=== PATIENT | female | born 1960 | race Caucasian/White ===

== ENCOUNTER 2018-10-26 21:29 | Emergency (ER) | payer OTHER ==
[2018-10-26 21:43] VITALS: BP 152/81
[2018-10-26] MEDS ORDERED: Albuterol/Ipratropium NEB.SOL* Albuterol 2.5 MG/Ipratropium 0.5 MG 3 ML INH ONE (21:52)
[2018-10-26] MEDS ORDERED: predniSONE TAB* 20 MG PO ONE (21:55)
--- NOTE | 2018-10-26 22:08 | ED ---
Respiratory - HPI Summary HPI Summary: 57 yr old female with the complaint of coughing, runny nose. Onset yesterday. She uses her inhaler. She has a history of asthma. She has no fever or chills. No CP. SHe states she needs a neb and to be started on steroids. Symptoms are moderate. - History of Current Complaint Chief Complaint: UCRespiratory Stated Complaint: ASTHMA Time Seen by Provider: 10/26/18 21:52 Pain Intensity: 0 - Allergy/Home Medications Allergies/Adverse Reactions: Allergies Allergy/AdvReac Type Severity Reaction Status Date / Time Penicillins Allergy Unknown Verified 10/26/18 21:43 Reaction Details Home Medications: Home Medications Albuterol 2.5MG/3ML (0.083%)* [Ventolin 2.5 MG/3 ML NEB.DERIK*] 2.5 mg INH Q4H 08/11 [History Confirmed 10/26/18] Montelukast Sodium TAB* [Singulair TAB*] 10 mg PO DAILY 10/26/18 [History Confirmed 10/26/18] PMH/Surg Hx/FS Hx/Imm Hx Infectious Disease History: No Infectious Disease History: Denies: Traveled Outside the [place] in Last 30 Days - Family History Known Family History: Positive: None - Social History Occupation: Employed Full-time Alcohol Use: Weekly Substance Use Type: Reports: None Smoking Status (MU): Never Smoked Tobacco Review of Systems Constitutional: Negative Positive: Shortness Of Breath, Cough All Other Systems Reviewed And Are Negative: Yes Physical Exam Triage Information Reviewed: Yes Vital Signs On Initial Exam: Initial Vitals Temp Pulse Resp BP Pulse Ox 98.7 F 91 18 152/81 96 10/26/18 21:40 10/26/18 21:40 10/26/18 21:40 10/26/18 21:40 10/26/18 21:40 Vital Signs Reviewed: Yes Appearance: Positive: Well-Appearing, No Pain Distress Skin: Positive: Warm, Skin Color Reflects Adequate Perfusion Head/Face: Positive: Normal Head/Face Inspection Eyes: Positive: EOMI ENT: Positive: Pharynx normal, Nasal congestion, TMs normal Neck: Positive: Nontender Respiratory/Lung Sounds: Positive: Breath Sounds Present, Wheezes - faint bilateral. She has good air movement. SHe is not in distress. Speaks full sentence.. Negative: Stridor Cardiovascular: Positive: RRR. Negative: Murmur Musculoskeletal: Positive: Strength/ROM Intact Neurological: Positive: Sensory/Motor Intact, Alert, Oriented to Person Place, Time, CN Intact II-III Psychiatric: Positive: Normal Diagnostics - Vital Signs Vital Signs Temp Pulse Resp BP Pulse Ox 10/26/18 21:40 98.7 F 91 18 152/81 96 - Laboratory Lab Statement: Any lab studies that have been ordered have been reviewed, and results considered in the medical decision making process. Re-Evaluation - Re-Evaluation First Eval Re-Evaluation Time: 22:07 Change: Improved Comment: lungs are clear after the neb Disposition - Course Course Of Treatment: 57 yr old with URI, and mild asthma exacerbation. DC home on pred and also she has albuterol inhaler. - Diagnoses Provider Diagnoses: Asthma, Hypertension Discharge - Sign-Out/Discharge Documenting (check all that apply): Patient Departure All imaging exams completed and their final reports reviewed: No Studies - Discharge Plan Condition: Good Disposition: HOME Prescriptions: predniSONE TAB* [Deltasone 20 MG TAB*] 40 mg PO DAILY #8 tab Patient Education Materials: Asthma (ED), Upper Respiratory Infection (ED), Hypertension (ED) Referrals: No Primary Care Phys,NOPCP [Primary Care Provider] - [facility] [place] [facility] [Outside] - Billing Disposition and Condition Condition: GOOD Disposition: Home
== END 2018-10-26 22:15 | disposition home or self-care (01) ==
LOC: UCEAST 21:29
DX: J45.909 Unspecified asthma, uncomplicated (principal); I10 Essential (primary) hypertension; Z88.0 Allergy status to penicillin
CPT/HCPCS: 99202; A9270-GY; G0463; J7512